=== PATIENT | female | born 1980 | race Caucasian/White ===

== ENCOUNTER → 2018-03-02 | Outpatient (CLI) | payer BC ==
[~2018-03-02] VITALS: Ht 172.7 cm; Wt 102.3 kg
[~2018-03-02] MED LIST: CYMBALTA20 MG PO; FLONASE ALLERG9.9 ML NS; SINGULAIR PO; XYZAL5 MG PO
[2018-03-02 17:00] VITALS: BP 129/90
[2018-03-02 17:52] LABS: HEMATOCRIT 43.5 % (37.0-47.0); HEMOGLOBIN 15.5 g/dL (12.5-16.0); MEAN CELL VOLUME 84 fl (78-100); MEAN CORPUSCULAR HEMOGLOBIN 30 pg (27-31); MEAN CORPUSCULAR HGB CONC 36 g/dL (33-37); MEAN PLATELET VOLUME 10.9 fl (7.4-10.4); PLATELET COUNT 279 K/mm3 (130-400); RED BLOOD COUNT 5.17 M/mm3 (4.10-5.30); RED CELL DISTRIBUTION WIDTH 12.4 % (11.5-14.5); WHITE BLOOD COUNT 14.8 K/mm3 (4.8-10.8)
[2018-03-02 17:58] LABS: ALBUMIN 4.2 g/dL (3.5-5.0); CALCIUM 8.8 mg/dL (8.4-10.2); POTASSIUM 3.8 mmol/L (3.6-5.0); TOTAL BILIRUBIN 0.8 mg/dL (0.2-1.3); TOTAL PROTEIN 7.2 g/dL (6.3-8.2)
[2018-03-02 18:13] LABS: URINE APPEARANCE CLEAR; URINE COLOR YELLOW; URINE PROTEIN(semi-quant) TRACE mg/dL (NEGATIVE)
[2018-03-02 18:14] LABS: URINE BILIRUBIN NEGATIVE (NEGATIVE); URINE BLOOD NEGATIVE (NEGATIVE); URINE GLUCOSE NEGATIVE (NEGATIVE); URINE KETONE 1+ (NEGATIVE); URINE LEUKOCYTE ESTERASE NEGATIVE (NEGATIVE); URINE NITRATE NEGATIVE (NEGATIVE); URINE UROBILINOGEN NORMAL (NORMAL); URINE WBC 0-1 /hpf (0-3)
[2018-03-02 19:10] VITALS: BP 134/90
[2018-03-02 20:00] LABS: LYMPHOCYTE 14 % (20-51); MONOCYTE 4 % (3-10); NEUTROPHILS 80 % (42-75)
== END ==
LOC: AMSURD 16:35
PROVIDERS: Nurse Practitioner Family
DX: R10.9 Unspecified abdominal pain (principal); R11.2 Nausea with vomiting, unspecified; R19.7 Diarrhea, unspecified
CPT/HCPCS: J2405; J7030; Q9967